=== PATIENT | female | born 1945 | race Caucasian/White ===

== ENCOUNTER 2022-06-28 16:16 | Observation (INO) | payer MEDICARE, OTHER ==
[2022-06-28 18:27] LABS: Basophils # (A) 0.1 k/uL (0-0.2); Basophils % (A) 1 %; Eosinophils # (A) 0.1 k/uL (0-0.7); Eosinophils % (A) 1 %; HCT 45.2 % (34.0-46.0); HGB 15.2 gm/dL (11.4-16.0); Lymphocytes # (A) 1.8 k/uL (1.0-4.8); Lymphocytes % (A) 24 %; MCH 28.7 pg (25.0-35.0); MCHC 33.6 g/dL (31.0-37.0); MCV 85.6 fL (80.0-100.0); Mean Platelet Volume 8.3; Monocytes # (A) 0.5 k/uL (0-1.0); Monocytes % (A) 6 %; Neutrophils # (A) 5.1 k/uL (1.3-7.7); Neutrophils % (A) 66 %; Platelet Count 168 k/uL (150-450); RBC 5.28 m/uL (3.80-5.40); WBC 7.8 k/uL (3.8-10.6)
[2022-06-28 18:36] LABS: Partial Thromboplastin Time 23.9 sec (22.0-30.0); Prothrombin Time 10.4 sec (9.0-12.0)
[2022-06-28 18:39] LABS: ALT 17 U/L (4-34); AST 19 U/L (14-36); African American GFR (CKD) >90 (>60 ml/min/1.73 sqM); Albumin 4.3 g/dL (3.5-5.0); Alkaline Phosphatase 125 U/L (38-126); Anion Gap 9 mmol/L; Blood Urea Nitrogen 20 mg/dL (7-17); Calcium 9.2 mg/dL (8.4-10.2); Carbon Dioxide 29 mmol/L (22-30); Chloride 102 mmol/L (98-107); Glucose 145 mg/dL (74-99); Non-African American GFR(CKD) >90 (>60 ml/min/1.73 sqM); Potassium 4.4 mmol/L (3.5-5.1); Sodium 140 mmol/L (137-145); Total Bilirubin 0.8 mg/dL (0.2-1.3); Total Protein 7.3 g/dL (6.3-8.2)
--- NOTE | 2022-06-28 22:00 | XR ---
EXAMINATION TYPE: XR chest 2V DATE OF EXAM: 06/28/2022 COMPARISON: NONE HISTORY: Shortness of breath TECHNIQUE: Frontal and lateral views of the chest are obtained. FINDINGS: Scattered senescent parenchymal changes noted. Hyperinflation compatible with COPD. No evidence for infiltrate. No evidence for atelectasis. Heart size is stable. Mediastinal structures are stable and grossly unremarkable. No evidence for hilar prominence. Degenerative changes dorsal spine. IMPRESSION: 1. No evidence for acute pulmonary disease.
[2022-06-28] MEDS ORDERED: NALOXONE 0.4 MG/ML 1 ML VIAL IV PRN (23:05)
--- NOTE | 2022-06-28 23:05 | ED ---
SOB HPI - General Chief Complaint: Shortness of Breath Stated Complaint: SOB Time Seen by Provider: 06/28/22 20:50 Source: patient Mode of arrival: ambulatory Limitations: no limitations - History of Present Illness Initial Comments: 77 year old female with past history of coronary artery disease status post cardiac catheterization and stent placement in December presents to the emergency department with chest pain and difficulty breathing. Patient was hospitalized at [facility] in December and had a cardiac catheterization performed. She was found to have a 90% LAD lesion and had a stent placed. Reports that she had a second lesion that was 50% occluded. States that she has been taking her Plavix as directed however continues to have exertional dyspnea. This morning the patient began having left-sided chest pain with some throbbing in her left bicep. States that the pain is gone at this time. She denies history of DVT or PE. No fevers, chills or cough. No other alleviating, precipitating modifying factors - Related Data Home Medications Medication Instructions Recorded Confirmed Aspirin 81 mg PO HS 06/28/22 06/28/22 Atorvastatin [Lipitor] 20 mg PO BID 06/28/22 06/28/22 Clopidogrel [Plavix] 75 mg PO HS 06/28/22 06/28/22 Ibuprofen [Motrin] 800 mg PO TID PRN 06/28/22 06/28/22 Metoprolol Tartrate [Lopressor] 12.5 mg PO BID 06/28/22 06/28/22 PARoxetine HCL [Paxil] 60 mg PO HS 06/28/22 06/28/22 diazePAM [Valium] 5 mg PO Q12H PRN 06/28/22 06/28/22 Allergies Allergy/AdvReac Type Severity Reaction Status Date / Time No Known Allergies Allergy Verified 06/28/22 21:43 Review of Systems ROS Statement: Those systems with pertinent positive or pertinent negative responses have been documented in the HPI. ROS Other: All systems not noted in ROS Statement are negative. Past Medical History Past Medical History: Coronary Artery Disease (CAD), Chest Pain / Angina History of Any Multi-Drug Resistant Organisms: None Reported Past Surgical History: Heart Catheterization With Stent Past Psychological History: Anxiety Smoking Status: Never smoker Past Alcohol Use History: None Reported Past Drug Use History: None Reported - Past Family History family Family Medical History: Coronary Artery Disease (CAD) General Exam Limitations: no limitations General appearance: alert, in no apparent distress Head exam: Present: atraumatic, normocephalic, normal inspection Eye exam: Present: normal appearance, PERRL, EOMI. Absent: scleral icterus, conjunctival injection, periorbital swelling ENT exam: Present: normal exam, mucous membranes moist Neck exam: Present: normal inspection. Absent: tenderness, meningismus, lymphadenopathy Respiratory exam: Present: normal lung sounds bilaterally. Absent: respiratory distress, wheezes, rales, rhonchi, stridor Cardiovascular Exam: Present: regular rate, normal rhythm, normal heart sounds. Absent: systolic murmur, diastolic murmur, rubs, gallop, clicks GI/Abdominal exam: Present: soft, normal bowel sounds. Absent: distended, tenderness, guarding, rebound, rigid Extremities exam: Present: normal inspection, full ROM, normal capillary refill. Absent: tenderness, pedal edema, joint swelling, calf tenderness Back exam: Present: normal inspection Neurological exam: Present: alert, oriented X3, CN II-XII intact Psychiatric exam: Present: normal affect, normal mood Skin exam: Present: warm, dry, intact, normal color. Absent: rash Course Vital Signs 06/28/22 06/28/22 17:01 22:00 Temperature 97.9 F Pulse Rate 78 72 Respiratory 20 18 Rate Blood Pressure 194/91 172/96 O2 Sat by Pulse 96 98 Oximetry Medical Decision Making - Medical Decision Making Upon arrival patient was placed into room 1. A thorough history and physical exam was performed. Patient placed on continuous pulse ox and cardiac monitoring. 12 EKG is obtained which demonstrates no acute ST segment elevations or depressions. IV access is established and laboratory studies are conducted. D-dimer is 0.75 which is age appropriate. Troponin negative. Spoke with the patient recommended admission for cardiology consultation for which the patient was agreeable to. Patient admitted to [facility] in stable condition - Lab Data Result diagrams: 06/29/22 04:35 06/29/22 04:35 Lab Results 06/28/22 06/28/22 06/28/22 Range/Units 17:55 17:55 17:55 WBC 7.8 (3.8-10.6) k/uL RBC 5.28 (3.80-5.40) m/uL Hgb 15.2 (11.4-16.0) gm/dL Hct 45.2 (34.0-46.0) % MCV 85.6 (80.0-100.0) fL MCH 28.7 (25.0-35.0) pg MCHC 33.6 (31.0-37.0) g/dL RDW 15.0 (11.5-15.5) % Plt Count 168 (150-450) k/uL MPV 8.3 Neutrophils % 66 % Lymphocytes % 24 % Monocytes % 6 % Eosinophils % 1 % Basophils % 1 % Neutrophils # 5.1 (1.3-7.7) k/uL Lymphocytes # 1.8 (1.0-4.8) k/uL Monocytes # 0.5 (0-1.0) k/uL Eosinophils # 0.1 (0-0.7) k/uL Basophils # 0.1 (0-0.2) k/uL PT 10.4 (9.0-12.0) sec INR 1.0 (<1.2) APTT 23.9 (22.0-30.0) sec D-Dimer (<0.60) mg/L FEU Sodium 140 (137-145) mmol/L Potassium 4.4 (3.5-5.1) mmol/L Chloride 102 (98-107) mmol/L Carbon Dioxide 29 (22-30) mmol/L Anion Gap 9 mmol/L BUN 20 H (7-17) mg/dL Creatinine 0.50 L (0.52-1.04) mg/dL Est GFR (CKD-EPI)AfAm >90 (>60 ml/min/1.73 sqM) Est GFR (CKD-EPI)NonAf >90 (>60 ml/min/1.73 sqM) Glucose 145 H (74-99) mg/dL Plasma Lactic Acid Fernando (0.7-2.0) mmol/L Calcium 9.2 (8.4-10.2) mg/dL Total Bilirubin 0.8 (0.2-1.3) mg/dL AST 19 (14-36) U/L ALT 17 (4-34) U/L Alkaline Phosphatase 125 (38-126) U/L Troponin I (0.000-0.034) ng/mL NT-Pro-B Natriuret Pep pg/mL Total Protein 7.3 (6.3-8.2) g/dL Albumin 4.3 (3.5-5.0) g/dL 06/28/22 06/28/22 06/28/22 Range/Units 17:55 18:00 18:00 WBC (3.8-10.6) k/uL RBC (3.80-5.40) m/uL Hgb (11.4-16.0) gm/dL Hct (34.0-46.0) % MCV (80.0-100.0) fL MCH (25.0-35.0) pg MCHC (31.0-37.0) g/dL RDW (11.5-15.5) % Plt Count (150-450) k/uL MPV Neutrophils % % Lymphocytes % % Monocytes % % Eosinophils % % Basophils % % Neutrophils # (1.3-7.7) k/uL Lymphocytes # (1.0-4.8) k/uL Monocytes # (0-1.0) k/uL Eosinophils # (0-0.7) k/uL Basophils # (0-0.2) k/uL PT (9.0-12.0) sec INR (<1.2) APTT (22.0-30.0) sec D-Dimer 0.75 H (<0.60) mg/L FEU Sodium (137-145) mmol/L Potassium (3.5-5.1) mmol/L Chloride (98-107) mmol/L Carbon Dioxide (22-30) mmol/L Anion Gap mmol/L BUN (7-17) mg/dL Creatinine (0.52-1.04) mg/dL Est GFR (CKD-EPI)AfAm (>60 ml/min/1.73 sqM) Est GFR (CKD-EPI)NonAf (>60 ml/min/1.73 sqM) Glucose (74-99) mg/dL Plasma Lactic Acid Fernando (0.7-2.0) mmol/L Calcium (8.4-10.2) mg/dL Total Bilirubin (0.2-1.3) mg/dL AST (14-36) U/L ALT (4-34) U/L Alkaline Phosphatase (38-126) U/L Troponin I <0.012 (0.000-0.034) ng/mL NT-Pro-B Natriuret Pep 397 pg/mL Total Protein (6.3-8.2) g/dL Albumin (3.5-5.0) g/dL 06/28/22 Range/Units 21:15 WBC (3.8-10.6) k/uL RBC (3.80-5.40) m/uL Hgb (11.4-16.0) gm/dL Hct (34.0-46.0) % MCV (80.0-100.0) fL MCH (25.0-35.0) pg MCHC (31.0-37.0) g/dL RDW (11.5-15.5) % Plt Count (150-450) k/uL MPV Neutrophils % % Lymphocytes % % Monocytes % % Eosinophils % % Basophils % % Neutrophils # (1.3-7.7) k/uL Lymphocytes # (1.0-4.8) k/uL Monocytes # (0-1.0) k/uL Eosinophils # (0-0.7) k/uL Basophils # (0-0.2) k/uL PT (9.0-12.0) sec INR (<1.2) APTT (22.0-30.0) sec D-Dimer (<0.60) mg/L FEU Sodium (137-145) mmol/L Potassium (3.5-5.1) mmol/L Chloride (98-107) mmol/L Carbon Dioxide (22-30) mmol/L Anion Gap mmol/L BUN (7-17) mg/dL Creatinine (0.52-1.04) mg/dL Est GFR (CKD-EPI)AfAm (>60 ml/min/1.73 sqM) Est GFR (CKD-EPI)NonAf (>60 ml/min/1.73 sqM) Glucose (74-99) mg/dL Plasma Lactic Acid Fernando 1.7 (0.7-2.0) mmol/L Calcium (8.4-10.2) mg/dL Total Bilirubin (0.2-1.3) mg/dL AST (14-36) U/L ALT (4-34) U/L Alkaline Phosphatase (38-126) U/L Troponin I (0.000-0.034) ng/mL NT-Pro-B Natriuret Pep pg/mL Total Protein (6.3-8.2) g/dL Albumin (3.5-5.0) g/dL - EKG Data EKG Comments: EKG was interpreted by myself. Demonstrates a sinus rhythm with a rate of 65. [place] interval 123. QRS 127. QTC 4:15. A bundle branch block. No acute ST segment elevations or depressions. Disposition Clinical Impression: Chest pain, Exertional dyspnea Disposition: ADMITTED IP TO THIS HOSP Condition: Stable Is patient prescribed a controlled substance at d/c from ED?: No Time of Disposition: 23:05 Decision to Admit Reason: Admit from EC Decision Date: 06/28/22 Decision Time: 23:05
[2022-06-29] MEDS ORDERED: ASPIRIN 81 MG PO STA (01:05)
[2022-06-29] MEDS ORDERED: IBUPROFEN 800 MG TAB PO PRN (01:05)
[2022-06-29] MEDS ORDERED: diazePAM 5 MG TAB PO PRN (01:05)
--- NOTE | 2022-06-29 03:30 | P.HPIM ---
History of Present Illness H&P Date: 06/29/22 Chief Complaint: chest pain 77 year old female with CAD s/p stent OCTOBER 2021 patient comes in after experiencing sudden episode of chest pain and shortness of breath while resting doing nothing, describes the pain as 5-6/10 central and across her chest , radiating to the left arm, associated with heavy breathing, palpitations and profuse sweating, denies any nausea or vomiting , she took aspirin and decided to come in for evaluation , she has concerns about her well being and overall cardiac health, as she has been experiencing exercise intolerance since her heart attack months ago, before that she used to walk 4 miles daily , but now she is unable to do that due to exertional dyspnea. denies any fever, chills, URI symptoms, abd pain , changes in bowel or urinary habits. blood work in the ED , unermarkable except for slightly elevated d dimer, EKG no acute ST changes Review of Systems Pertinent positives as noted in HPI. All other systems were reviewed and are negative Past Medical History Past Medical History: Coronary Artery Disease (CAD), Chest Pain / Angina History of Any Multi-Drug Resistant Organisms: None Reported Past Surgical History: Heart Catheterization With Stent Date of Last Stent Placement:: october 2021 Past Psychological History: Anxiety Smoking Status: Never smoker Past Alcohol Use History: None Reported Past Drug Use History: None Reported - Past Family History family Family Medical History: Coronary Artery Disease (CAD) Medications and Allergies Home Medications Medication Instructions Recorded Confirmed Type Aspirin 81 mg PO HS 06/28/22 06/28/22 History Atorvastatin [Lipitor] 20 mg PO BID 06/28/22 06/28/22 History Clopidogrel [Plavix] 75 mg PO HS 06/28/22 06/28/22 History Ibuprofen [Motrin] 800 mg PO TID PRN 06/28/22 06/28/22 History Metoprolol Tartrate [Lopressor] 12.5 mg PO BID 06/28/22 06/28/22 History PARoxetine HCL [Paxil] 60 mg PO HS 06/28/22 06/28/22 History diazePAM [Valium] 5 mg PO Q12H PRN 06/28/22 06/28/22 History Allergies Allergy/AdvReac Type Severity Reaction Status Date / Time No Known Allergies Allergy Verified 06/28/22 21:43 Physical Exam Vitals: Vital Signs Temp Pulse Pulse Resp BP BP Pulse Ox 06/29/22 00:52 152/72 06/29/22 00:21 16 06/29/22 00:00 98.2 F 70 16 196/43 97 06/28/22 22:00 72 18 172/96 98 06/28/22 17:01 97.9 F 78 20 194/91 96 Intake and Output 06/28/22 06/28/22 06/29/22 14:59 22:59 06:59 Other: Weight 99.79 kg 99.79 kg Constitutional: No acute distress, conversant, pleasant Eyes: Anicteric sclerae, moist conjunctiva, Pupils equal round reactive to light ENMT: NC/AT Oropharynx clear, no erythema, or exudates Neck: Supple, no masses, or JVD No carotid bruits No thyromegaly Lungs: Clear to auscultation Clear to percussion Normal respiratory effort, no accessory muscle use Cardiovascular: Heart regular in rate and rhythm, No murmurs, gallops, or rubs No peripheral edema Abdominal: Soft Nontender, no guarding, rebound or rigidity Abdomen moving with respiration Normoactive bowel sounds No hepatomegaly, No splenomegaly No palpable mass No abdominal wall hernia noted Skin: Normal temperature, tone, texture, turgor No induration No subcutaneous nodules No rash, lesions No ulcers Extremities: No digital cyanosis No clubbing Pedal pulses intact and symmetrical Radial pulses intact and symmetrical No calf tenderness Psychiatric: Alert and oriented to person, place and time Appropriate affect fair judgement Neuro Muscles Strength 5/5 in all 4 extremities Sensation to light touch grossly present throughout Cranial nerves II-XII grossly intact Lymphatics: no palpable cervical or supraclavicular , lymph nodes Results CBC & Chem 7: 06/28/22 17:55 06/28/22 17:55 Labs: Abnormal Lab Results - Last 24 Hours (Table) 06/28/22 06/28/22 Range/Units 17:55 18:00 D-Dimer 0.75 H (<0.60) mg/L FEU BUN 20 H (7-17) mg/dL Creatinine 0.50 L (0.52-1.04) mg/dL Glucose 145 H (74-99) mg/dL Thrombosis Risk Factor Assmnt - Choose All That Apply Any of the Below Risk Factors Present?: Yes Each Factor Represents 1 point: Obesity (BMI >25), Swollen legs (current) Other Risk Factors: Yes Each Risk Factor Represents 3 Points: Age 75 years or older Thrombosis Risk Factor Assessment Total Risk Factor Score: 5 Thrombosis Risk Factor Assessment Level: High Risk Assessment and Plan Assessment: atypical chest pain rule out ACS EKG no acute changes CXR no acute pathology trops negative X2 air sampling and monitoring monitor vital signs ASA, statin , plavix , lopressor cardiology consult A1c, lipid panel , TSH pain control h/o CAD s/p stent October 2021 full code DVT PPX heparin sc tid
[2022-06-29 04:52] LABS: Basophils % (A) 1 %; Eosinophils # (A) 0.1 k/uL (0-0.7); Eosinophils % (A) 2 %; HCT 40.9 % (34.0-46.0); HGB 13.6 gm/dL (11.4-16.0); Lymphocytes # (A) 2.4 k/uL (1.0-4.8); Lymphocytes % (A) 29 %; MCH 28.5 pg (25.0-35.0); MCHC 33.3 g/dL (31.0-37.0); MCV 85.7 fL (80.0-100.0); Monocytes # (A) 0.6 k/uL (0-1.0); Monocytes % (A) 7 %; Neutrophils # (A) 4.9 k/uL (1.3-7.7); Neutrophils % (A) 59 %; Platelet Count 180 k/uL (150-450); RBC 4.78 m/uL (3.80-5.40); WBC 8.3 k/uL (3.8-10.6)
[2022-06-29 05:16] LABS: African American GFR (CKD) >90 (>60 ml/min/1.73 sqM); Anion Gap 5 mmol/L; Blood Urea Nitrogen 22 mg/dL (7-17); Calcium 8.6 mg/dL (8.4-10.2); Carbon Dioxide 30 mmol/L (22-30); Chloride 105 mmol/L (98-107); Glucose 121 mg/dL (74-99); Non-African American GFR(CKD) >90 (>60 ml/min/1.73 sqM); Potassium 4.4 mmol/L (3.5-5.1); Sodium 140 mmol/L (137-145)
[2022-06-29] MEDS ORDERED: bisacodyL 10 MG SUPP RECTAL STA (08:06)
--- NOTE | 2022-06-29 08:45 | CT ---
EXAMINATION TYPE: CT angio chest DATE OF EXAM: 06/29/2022 COMPARISON: None HISTORY: Acute chest pain, elevated d dimer CT DLP: 603.2 mGycm CONTRAST: CT chest with contrast and 3D reconstruction with MIP imaging is performed with IV Contrast, patient injected with 100 mL of Isovue 370. Contrast-enhanced CT of the chest was performed through the course of the pulmonary arteries with maritza g and mediastinal window settings submitted. 3D reconstruction with MIP imaging was also performed. PULMONARY ARTERIES: The pulmonary arteries and their major tributaries are patent. I do not see mag dence for sizable filling defect to suggest pulmonary embolic process. LUNGS: The lungs are clear and free of infiltrate. No evidence for atelectasis. No pulmonary nodule or mass is detected. No pleural effusion. MEDIASTINUM: Thoracic aorta is of normal caliber,however, evaluation is limited given timing of the contrast bolus. If there is concern for thoracic aortic pathology consider MAXINE. Correlate clinicall y . The heart is not enlarged. No evidence for mediastinal mass. No mediastinal lymph nodes greater than 1cm. HILAR STRUCTURES: No evidence for mass. No hilar lymph nodes greater than 1 cm. UPPER ABDOMEN: No significant abnormality is seen. IMPRESSION: 1. No evidence for Pulmonary embolism at this time.
[2022-06-29 08:51] VITALS: TEMP 97.8
[2022-06-29] MEDS ORDERED: METOPROLOL TARTRATE 12.5 MG TAB PO SCH (09:00)
[2022-06-29] MEDS ORDERED: ATORVASTATIN 20 MG TAB PO SCH (09:00)
[2022-06-29] MEDS ORDERED: SENNOSIDES-DOCUSATE SODIUM 1 EACH TAB PO SCH (09:00)
--- NOTE | 2022-06-29 09:35 | P.CRDCN ---
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 Patient relates that she had a myocardial infarction 11/05/[address] at [facility] status post stent to the RCA. She states she also had a 50% blockage in a second vessel. Patient complains of chest pain went into her left arm as"little pains", palpitations, shortness of breath, nausea. Usually only lasts a few seconds. Patient states that she cannot exercise because of severe osteoarthritis of both knees. She does state with minimal activity she has shortness of breath. She has had follow-up with her special investigator due to chest pain and exertional dyspnea with plan for stress test which apparently was canceled patient does not know reason why. She has no t had a recent follow-up with her special investigator. At the time of this evaluation, patient states she has nausea only. She denies having chest pain and shortness of breath at rest. Social history: Patient was a smoker of one and half packs per day for 10 years ago with 30 years ago. She denies any alcohol use, marijuana use or street drug use. Family medical history: Mother at age 67 from heart failure. Father had an myocardial infarction in his 60s. Patient has 4 sisters with cardiac disease. She has 1 brother that has had a myocardial infarction and one son age 54 has had a cardiac stent. EKG sinus rhythm with right bundle branch block, monitor tech sinus rhythm.. Chest x-ray no acute disease. CTA of the chest negative for pulmonary embolism Troponin negative on 3 draws, pro-BMP 397, creatinine 0.5. Lipid panel is pending Echocardiogram ordered. Review Of Systems: At time of my evaluation Constitutional: No fever, no chills. No weakness, fatigue or lethargy. EENT: No headache. No dizziness. Lungs: No shortness of breath, cough, no sputum production. No wheezing. Cardiovascular: No chest pain, no lower extremity edema. No palpitations. No paroxysmal nocturnal dyspnea. No orthopnea. No lightheadedness or dizziness. No syncopal episodes. Abdominal: No abdominal pain. No nausea, vomiting. No diarrhea. No constipation. No bloody or tarry stools.. No loss of appetite. Genitourinary: No dysuria.. No urinary retention. Musculoskeletal: No myalgias. No muscle weakness, no gait dysfunction, no frequent falls. No back pain. No neck pain. Integumentary: No wounds, no lesions. No rash or pruritus. No unusual bruising. Neurologic: No aphasia. No facial droop. No change in mentation. No head injury. No headache. No paralysis. No paresthesia. Psychiatric: No depression. No anxiety. Endocrine: No abnormal blood sugars. Physical examination: Gen: This is a 77-year-old female. She is resting in bed appears to be comfortable at rest and in no acute distress. VS: Temperature 97.8, heart rate 76, blood pressure 153/72, pulse ox 94% on room air. HEENT: Head is atraumatic, normocephalic. Pupils equal, round. Sclerae is anicteric. NECK: Supple. No JVD. No lymphadenopathy. No thyromegaly. No carotid bruit. LUNGS: Clear to auscultation. No wheezes or rhonchi. No intercostal retractions. HEART: Regular rate and rhythm. No murmur. ABDOMEN: Soft. Bowel sounds are present. No masses. No tenderness. EXTREMITIES: No pedal edema. No calf tenderness. Dorsalis pedis +2 on the right, +1 on the left. NEUROLOGICAL: Patient is awake, alert and oriented x3. Cranial nerves 2 through 12 are grossly intact. Assessment: Atypical Chest pain, acute coronary syndrome ruled out Coronary artery disease status post stent of the RCA in October 2021 Dyspnea and fatigue with exertion since stenting in October 2021. Less likely side effect from statin however believes improved after decreasing. Plan: Patient to continue on home cardiac medications including Plavix, aspirin 81 mg daily, metoprolol Patient may stop atorvastatin to access if this is causing some of her symptoms Obtain 2-D echocardiogram and Doppler study to assess cardiac structure and function If echocardiogram is normal, patient may discharge to home Patient instructed to monitor BP at home Follow up with Dr. Plaza in one to two weeks Thank you kindly for this consultation. Nurse practitioner note has been reviewed, I agree with documented findings and plan of care. Patient was seen and examined. Past Medical History Past Medical History: Coronary Artery Disease (CAD), Chest Pain / Angina History of Any Multi-Drug Resistant Organisms: None Reported Past Surgical History: Heart Catheterization With Stent Date of Last Stent Placement:: october 2021 Past Psychological History: Anxiety Smoking Status: Never smoker Past Alcohol Use History: None Reported Past Drug Use History: None Reported - Past Family History family Family Medical History: Coronary Artery Disease (CAD) Medications and Allergies Home Medications Medication Instructions Recorded Confirmed Type Aspirin 81 mg PO HS 06/28/22 06/28/22 History Atorvastatin [Lipitor] 20 mg PO BID 06/28/22 06/28/22 History Clopidogrel [Plavix] 75 mg PO HS 06/28/22 06/28/22 History Ibuprofen [Motrin] 800 mg PO TID PRN 06/28/22 06/28/22 History Metoprolol Tartrate [Lopressor] 12.5 mg PO BID 06/28/22 06/28/22 History PARoxetine HCL [Paxil] 60 mg PO HS 06/28/22 06/28/22 History diazePAM [Valium] 5 mg PO Q12H PRN 06/28/22 06/28/22 History Allergies Allergy/AdvReac Type Severity Reaction Status Date / Time No Known Allergies Allergy Verified 06/28/22 21:43 Physical Exam Vitals: Vital Signs Temp Pulse Pulse Resp BP BP Pulse Ox 06/29/22 00:52 152/72 06/29/22 00:21 16 06/29/22 00:00 98.2 F 70 16 196/43 97 06/28/22 22:00 72 18 172/96 98 06/28/22 17:01 97.9 F 78 20 194/91 96 Intake and Output 06/28/22 06/29/22 06/29/22 22:59 06:59 14:59 Other: Voiding Method Toilet Diaper Weight 99.79 kg 99.79 kg Results 06/29/22 04:35 06/29/22 04:35 Cardiac Enzymes 06/28/22 06/28/22 06/28/22 Range/Units 17:55 17:55 23:15 AST 19 (14-36) U/L Troponin I <0.012 <0.012 (0.000-0.034) ng/mL 06/29/22 Range/Units 04:35 AST (14-36) U/L Troponin I <0.012 (0.000-0.034) ng/mL Coagulation 06/28/22 Range/Units 17:55 PT 10.4 (9.0-12.0) sec APTT 23.9 (22.0-30.0) sec CBC 06/28/22 06/29/22 Range/Units 17:55 04:35 WBC 7.8 8.3 (3.8-10.6) k/uL RBC 5.28 4.78 (3.80-5.40) m/uL Hgb 15.2 13.6 (11.4-16.0) gm/dL Hct 45.2 40.9 (34.0-46.0) % Plt Count 168 180 (150-450) k/uL Comprehensive Metabolic Panel 06/28/22 06/29/22 Range/Units 17:55 04:35 Sodium 140 140 (137-145) mmol/L Potassium 4.4 4.4 (3.5-5.1) mmol/L Chloride 102 105 (98-107) mmol/L Carbon Dioxide 29 30 (22-30) mmol/L BUN 20 H 22 H (7-17) mg/dL Creatinine 0.50 L 0.58 (0.52-1.04) mg/dL Glucose 145 H 121 H (74-99) mg/dL Calcium 9.2 8.6 (8.4-10.2) mg/dL AST 19 (14-36) U/L ALT 17 (4-34) U/L Alkaline Phosphatase 125 (38-126) U/L Total Protein 7.3 (6.3-8.2) g/dL Albumin 4.3 (3.5-5.0) g/dL Current Medications Generic Name Dose Route Start Last Admin Trade Name Freq PRN Reason Stop Dose Admin Aspirin 81 mg 06/29/22 21:00 Aspirin 81 Mg PO HS [facility] Atorvastatin Calcium 20 mg 06/29/22 09:00 Atorvastatin 20 Mg Tab PO BID [facility] Clopidogrel Bisulfate 75 mg 06/29/22 21:00 Clopidogrel 75 Mg Tab PO HS [facility] Diazepam 5 mg 06/29/22 01:05 Diazepam 5 Mg Tab PO Q12H PRN Anxiety Ibuprofen 800 mg 06/29/22 01:05 Ibuprofen 800 Mg Tab PO TID PRN Pain Metoprolol Tartrate 12.5 mg 06/29/22 09:00 Metoprolol Tartrate 12.5 Mg Tab PO BID KATELYN Naloxone HCl 0.2 mg 06/28/22 23:05 Naloxone 0.4 Mg/Ml 1 Ml Vial IV Q2M PRN Opioid Reversal Paroxetine HCl 60 mg 06/29/22 21:00 Paroxetine 20 Mg Tab PO HS KATELYN Intake and Output 06/28/22 06/29/22 06/29/22 22:59 06:59 14:59 Other: Voiding Method Toilet Diaper Weight 99.79 kg 99.79 kg 06/29/22 04:35 06/29/22 04:35
[2022-06-29 11:47] LABS: Chol/HDL Ratio 3.08 Ratio; LDL Cholesterol,Calculated 55.8 mg/dL (0.0-131.0)
--- NOTE | 2022-06-29 14:30 | CA ---
Transthoracic Echo Report Name: Chris Mejia Age: 77 Gender: F : 1945 Exam Date: 06/29/2022 08:54 Exam Location: [place] [facility] Ht (in): 65 Wt (lb): 220 Ordering Physician: Christine Piper Attending/Referring Phys: [id number], [employer] Chair Annabel Valdes RDCS Procedure CPT: Indications: LVF Cardiac Hx: Technical Quality: Fair Contrast 1: N/A Total Dose (mL): Contrast 2: Total Dose (mL): MEASUREMENTS (Male / Female) Normal Values 2D ECHO LV Diastolic Diameter PLAX 4.3 cm 4.2 - 5.9 / 3.9 - 5.3 cm LV Systolic Diameter PLAX 3.3 cm IVS Diastolic Thickness 1.3 cm 0.6 - 1.0 / 0.6 - 0.9 cm LVPW Diastolic Thickness 1.5 cm 0.6 - 1.0 / 0.6 - 0.9 cm LV Relative Wall Thickness 0.7 RV Internal Dim ED PLAX 3.0 cm LA Systolic Diameter LX 4.0 cm 3.0 - 4.0 / 2.7 - 3.8 cm LA Volume 78.9 cm??? 18 - 58 / 22 - 52 cm??? M-MODE Aortic Root Diameter MM 2.6 cm LA Systolic Diameter MM 4.8 cm LA Ao Ratio MM 1.8 MV E Point Septal Separation 0.4 cm AV Cusp Separation MM 1.7 cm DOPPLER MV Area PHT 3.1 cm??? Mitral E Point Velocity 96.8 cm/s Mitral A Point Velocity 85.7 cm/s Mitral E to A Ratio 1.1 MV Deceleration Time 188.7 ms MV E' Velocity 3.8 cm/s Mitral E to MV E' Ratio 25.2 TR Peak Velocity 271.7 cm/s TR Peak Gradient 29.5 mmHg Right Ventricular Systolic Press 32.6 mmHg FINDINGS Left Ventricle Mildly increased septal wall thickness. Left ventricular ejection fraction is estimated at 50-55%. Right Ventricle Normal right ventricular size and function. Right ventricular systolic pressure within normal limits. Right Atrium Mild right atrial dilatation. Left Atrium Mildly increased left atrial diameter. Severely increased left atrial volume. Mildly increased left atrial area. Mitral Valve Structurally normal mitral valve. Mild mitral regurgitation. Aortic Valve Trileaflet aortic valve. Tricuspid Valve Structurally normal tricuspid valve. Mild tricuspid regurgitation. Pulmonic Valve Structurally normal pulmonic valve. Pericardium Normal pericardium. Aorta Normal size aortic root and proximal ascending aorta. CONCLUSIONS Mild increased left ventricular wall thickness Left ventricular ejection fraction 50-55% Mild to moderately dilated left atrium Mild mitral regurgitation Mild tricuspid regurgitation RVSP 32 Previewed by: Dr. Neo Plaza DO (Electronically Signed) Final Date: 29 June 2022 14:29
[2022-06-29 14:35] VITALS: BP 171/51; PULSE 75; RESP 16
--- NOTE | 2022-06-29 15:08 | P.DS ---
Providers Date of admission: 06/28/22 23:05 Expected date of discharge: 06/29/22 Attending physician: Ramses Ray MD Consults: 06/28/22 23:05 Consult Physician Urgent Consulting Provider: [facility] Consult Reason/Comments: acute chest pain, hx ascad Do you want consulting provider notified?: Yes Primary care physician: SOCRATES Hernandez Hospital Course: Discharge Diagnosis: Chest pain, acute coronary syndrome ruled out Coronary artery disease Borderline diabetes Obesity with BMI 36.6 Hospital Course: As a 77 showed female with a history of borderline diabetes, coronary artery disease with prior stenting and myocardial infarction, and obesity who presented to the hospital with complaints of chest pain. In the ER she underwent an extensive evaluation. On arrival she was hypertensive with a blood pressure of 194/91. Initial EKG was nonischemic. Initial blood work was unremarkable. Troponin was negative. BNP was 397. She did have mildly elevated d-dimer at 0.75 which should be normal for age adjustment. She did undergo a CT of the chest which ruled out any pulmonary embolism or intrathoracic process. Her troponins were cycled and remained negative. She was seen by cardiology. They recommended continuing her aspirin and Plavix and metoprolol. She had an echo which showed: Left ventricular ejection fraction 50-55%, mild to moderately dilated left atrium, RVSP 32, mildly increased left ventricular wall thickness Of note she does complain of abnormal bowel movements since October and some intermittent tremors. I've asked her to follow-up with her primary care physician for further evaluation. Follow-up: Dr. Plaza in 1-[address] Nunez in 1-2 weeks, no medication changes at this time. Patient seen and examined at bedside. No chest pain durrent, no shortness of breath, some nausea, c/o abdnormal bowel since nd intermittent tremors Vital signs reviewed and stable. General: nontoxic, no distress, appears at stated age Derm: warm, dry Head: atraumatic, normocephalic, symmetric Eyes: EOMI, no lid lag, anicteric sclera Mouth: no lip lesion, mucus membranes moist Cardiovascular: S1S2 reg, no murmur, positive posterior tibial pulse bilateral, Lungs: CTA bilateral, no rhonchi, no rales , no accessory muscle use Abdominal: soft, nontender to palpation, no guarding, no appreciable organomegaly Ext: no gross muscle atrophy, no edema, no contractures Neuro: CN II-XI grossly intact, no focal neuro deficits Psych: Alert, oriented, appropriate affect A total of 25 minutes of time were spent preparing this complex discharge summary. Patient was discharged on 06/29/22. Patient Condition at Discharge: Stable Plan - Discharge Summary New Discharge Prescriptions: Continue Aspirin 81 mg PO HS PARoxetine HCL [Paxil] 60 mg PO HS Clopidogrel [Plavix] 75 mg PO HS diazePAM [Valium] 5 mg PO Q12H PRN PRN Reason: Anxiety Metoprolol Tartrate [Lopressor] 12.5 mg PO BID Ibuprofen [Motrin] 800 mg PO TID PRN PRN Reason: Pain Atorvastatin [Lipitor] 20 mg PO BID Discharge Medication List Aspirin 81 mg PO HS 06/28/22 [History] Atorvastatin [Lipitor] 20 mg PO BID 06/28/22 [History] Clopidogrel [Plavix] 75 mg PO HS 06/28/22 [History] Ibuprofen [Motrin] 800 mg PO TID PRN 06/28/22 [History] Metoprolol Tartrate [Lopressor] 12.5 mg PO BID 06/28/22 [History] PARoxetine HCL [Paxil] 60 mg PO HS 06/28/22 [History] diazePAM [Valium] 5 mg PO Q12H PRN 06/28/22 [History] Follow up Appointment(s)/Referral(s): Neo Plaza DO [STAFF PHYSICIAN] - 1 Week Thais Nunez NPC [Primary Care Provider] - 1-2 days Activity/Diet/Wound Care/Special Instructions: Activity: as tolerated Diet: heart health Special Instructions: Monitor BP at home and record Bring list to Dr. Plaza's appointment. Discharge Disposition: HOME SELF-CARE
[2022-06-29] MEDS ORDERED: CLOPIDOGREL 75 MG TAB PO SCH (21:00)
[2022-06-29] MEDS ORDERED: PARoxetine 20 MG TAB PO SCH (21:00)
[2022-06-29] MEDS ORDERED: ASPIRIN 81 MG PO SCH (21:00)
== END 2022-06-29 15:27 | disposition home or self-care (01) ==
LOC: EC 16:16 → 6NMEDSUR 23:05
PROVIDERS: ADMIT Internal Medicine; ATTEND Internal Medicine
DX: R07.89 Other chest pain (principal); R06.09 Other forms of dyspnea; R53.83 Other fatigue; R79.89 Other specified abnormal findings of blood chemistry; R11.0 Nausea; R19.4 Change in bowel habit; R25.1 Tremor, unspecified; I25.10 Atherosclerotic heart disease of native coronary artery without angina pectoris; F41.9 Anxiety disorder, unspecified; R73.03 Prediabetes; M17.0 Bilateral primary osteoarthritis of knee; I10 Essential (primary) hypertension; I25.2 Old myocardial infarction; E66.9 Obesity, unspecified; Z68.36 Body mass index [BMI] 36.0-36.9, adult; Z87.891 Personal history of nicotine dependence; Z95.5 Presence of coronary angioplasty implant and graft; Z79.02 Long term (current) use of antithrombotics/antiplatelets; Z79.82 Long term (current) use of aspirin; Z79.899 Other long term (current) drug therapy; Z82.49 Family history of ischemic heart disease and other diseases of the circulatory system
CPT/HCPCS: 99285; 36415; 93005; 93306; 85379; 83880; 80061; 80053; 80048; 84443; 83605; 84484 ×2; 85025 ×2; 85610; 85730; 83036; 71046; 71275; G0378 ×2; Q9967

== ENCOUNTER → 2023-02-24 | Outpatient (CLI) | payer MEDICARE ==
--- NOTE | 2023-02-25 07:52 | US ---
EXAMINATION TYPE: US venous doppler duplex LE DATE OF EXAM: 02/24/2023 4:27 PM COMPARISON: NONE CLINICAL INDICATION: Female, 78 years old with history of M79.604 M79.605; right laughlin pain from fall 1 year go SIDE PERFORMED: Bilateral TECHNIQUE: The lower extremity deep venous system is examined utilizing real time linear array sonog keisha with graded compression, doppler sonography and color-flow sonography. VESSELS IMAGED: Common Femoral Vein Deep Femoral Vein Greater Saphenous Vein * Femoral Vein Popliteal Vein Small Saphenous Vein * Proximal Calf Veins (* superficial vessels) Right Leg: Negative for DVT Left Leg: Negative for DVT IMPRESSION: Grayscale, color doppler, spectral doppler imaging performed of the deep veins of the lo wer extremities. There is normal flow, compressibility, vascular waveforms.
--- NOTE | 2023-02-25 08:26 | US ---
EXAMINATION TYPE: US arterial LE single level DATE OF EXAM: 02/24/2023 4:44 PM CLINICAL INDICATION: Female, 78 years old with history of Z12.13; right leg pain from fall 1 year ago History of: Smoker: previous Hypertension: y Diabetic: borderline Hyperlipidemia: n TIA/CVA: n Previous Vascular Surgery: n CAD: n MT: n Vascular Ulcers: n Claudication: n Gangrene: n Doppler Waveforms: Right: Multiphasic Left: Multiphasic Right Brachial Pressure: 189 Left Brachial Pressure: 174 Ankle-Brachial Indices: Right: 0.9 Left: 1.0 Toe Brachial Indices: Right: could not obtain due to large misshapened toe Left: 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 Normal bilateral RYANN indices.
== END | disposition home or self-care (01) ==
LOC: RADUSWWP 15:54
PROVIDERS: ATTEND Family Medicine
DX: M79.604 Pain in right leg (principal); M79.605 Pain in left leg
CPT/HCPCS: 93922; 93970

== ENCOUNTER → 2023-07-29 | Outpatient (CLI) | payer MEDICARE ==
--- NOTE | 2023-07-29 15:32 | XR ---
EXAMINATION TYPE: XR Hip Complete RT DATE OF EXAM: 07/29/2023 COMPARISON: NONE HISTORY: Pain TECHNIQUE: 2 views submitted FINDINGS: There is no evidence of erosive change or acute fracture. There is right SI joint arthropathy. There is mild concentric narrowing the hip joint with diffuse osteopenia. Subtle deformity involving the upper margin of the right femur. Report called to referring clinician 3:30 PM 07/29/2023. IMPRESSION: 1. There is arthropathy with no definite acute fracture. There is a subtle lucency along the subcapit al region of the right femoral head. CT scan recommended..
== END | disposition home or self-care (01) ==
LOC: RADXRMAIN 14:13
PROVIDERS: ATTEND Family Medicine
DX: M12.851 Other specific arthropathies, not elsewhere classified, right hip (principal); Z91.81 History of falling
CPT/HCPCS: 73502

== ENCOUNTER → 2023-07-31 | Outpatient (CLI) | payer MEDICARE ==
--- NOTE | 2023-07-31 22:12 | XR ---
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 TECHNIQUE: 4 views of the skull. FINDINGS: Osseous mineralization appears appropriate. No definite fracture is seen. The visualized paranasal si nuses appear normally aerated. No evidence of acute displaced nasal bone fracture. There may possibly be a right zygomatic arch fracture. Visualized mandible and maxilla appear grossly intact. No radiop aque foreign body is seen. Visualized cervical spine shows moderate degenerative changes. IMPRESSION: Skull appears intact. 1. Right zygomatic arch fracture cannot be excluded. 2. No paranasal sinus air-fluid levels seen. 3. If clinically warranted, facial bone CT can be obtained for further evaluation.
--- NOTE | 2023-08-01 00:15 | CT ---
EXAMINATION TYPE: CT pelvis wo con CT DLP: 834.2 mGycm, Automated exposure control for dose reduction was used. DATE OF EXAM: 07/31/2023 6:05 PM COMPARISON: Right hip x-rays of 07/29/2023 CLINICAL INDICATION:Female, 78 years old with history of R93.89 ABNORMAL FINDINGS ON DX IMAGING OF O Z91.81; Fall, hip pain. AMS TECHNIQUE: Axial CT of the pelvis without contrast. Sagittal and coronal reformats were created on a separate workstation. Contrast used: mL of , (none if empty) Oral contrast used: without Oral Contrast (none if empty) FINDINGS: Bones: Mineralization appears appropriate. Mild/moderate degenerative changes of the included lower l umbar spine. Mild/moderate degenerative change of the SI joints with partial vacuum phenomenon. There is mild/moderate bilateral hip osteoarthropathy, right slightly greater than left with small osteoph ytes along the femoral head margin. No hip dislocation. Pelvis appears normal and symmetric. Soft tissues: Unremarkable bladder. Post hysterectomy. Numerous colonic diverticula, greatest in the sigmoid, without clear evidence of acute diverticulitis. Appendix is seen in the right lower quadrant and appears within normal limits. No free fluid or free air is seen in the pelvis. Moderate calcific ation of the visualized distal abdominal aorta and shows no evidence of AAA. Included kidneys demonstrate no calculus or hydronephrosis. There is a small fat-containing umbilical hernia. IMPRESSION: No acute osseous abnormality of the pelvis/hips. Degenerative changes as above.
== END | disposition home or self-care (01) ==
LOC: RADCTMAIN 13:58
PROVIDERS: ATTEND Family Medicine
DX: R93.89 Abnormal findings on diagnostic imaging of other specified body structures (principal); G89.11 Acute pain due to trauma; M25.551 Pain in right hip; Z91.81 History of falling; W19.XXXD Unspecified fall, subsequent encounter
CPT/HCPCS: 70260; 72192

== ENCOUNTER → 2023-11-18 | Outpatient (CLI) | payer MEDICARE ==
--- NOTE | 2023-11-18 14:55 | US ---
EXAMINATION TYPE: US abdomen limited DATE OF EXAM: 11/18/2023 COMPARISON: NONE CLINICAL INDICATION: Female, 78 years old with history of R53.82 CHR FATIGUE,R17 BILIRUBIN; Abnormal labs TECHNIQUE: Multiple sonographic images of the right upper quadrant are obtained. FINDINGS: EXAM MEASUREMENTS: Liver Length: 16.4 cm Gallbladder Wall: 0.1 cm CBD: 0.4 cm Right Kidney: 10.0 x 4.9 x 4.0 cm Pancreas: Echogenic in appearance. Limited visualization of tail. Liver: Heterogenous in appearance, echogenic Gallbladder: wnl Evidence for sonographic Arriola's sign: neg CBD: wnl Right Kidney: No hydronephrosis or masses seen, limited lower pole due to bowel gas IMPRESSION: Hepatic steatosis.
== END | disposition home or self-care (01) ==
LOC: RADUSWWP 13:07
PROVIDERS: ATTEND Student in an Organized Health Care Education/Training Program
DX: K76.0 Fatty (change of) liver, not elsewhere classified (principal); R53.82 Chronic fatigue, unspecified
CPT/HCPCS: 76705

== ENCOUNTER → 2024-04-23 | Outpatient (CLI) | payer MEDICARE ==
--- NOTE | 2024-04-23 09:31 | US ---
EXAMINATION TYPE: US venous doppler duplex LE RT DATE OF EXAM: 04/23/2024 8:44 AM COMPARISON: NONE CLINICAL INDICATION: Female, 79 years old with history of M79.604 R LEG PAIN M79.89 R LEG SWELLING; r ight leg edema and pain SIDE PERFORMED: right TECHNIQUE: The lower extremity deep venous system is examined utilizing real time linear array sonog keisha with graded compression, doppler sonography and color-flow sonography. VESSELS IMAGED: Common Femoral Vein Deep Femoral Vein Greater Saphenous Vein * Femoral Vein Popliteal Vein Small Saphenous Vein * Proximal Calf Veins (* superficial vessels) Right Leg: no evidence of DVT. complex anechoic area popliteal fossa = 2.0 x 1.1 x 1.5cm, Marsh's cy st IMPRESSION: 1. No diagnostic evidence of DVT. 2. Complicated popliteal fossa cyst measuring 2 cm consider short-term follow-up MRI.
--- NOTE | 2024-04-23 09:32 | US ---
EXAMINATION TYPE: US arterial LE single level DATE OF EXAM: 04/23/2024 9:02 AM CLINICAL INDICATION: Female, 79 years old with history of M79.604 R LEG PAIN M79.89 R LEG SWELLING; R ight leg pain and edema. partial toe amputation left great and 2nd toe years ago History of: Smoker: previous Hypertension: no Diabetic: yes Hyperlipidemia: no TIA/CVA: no Previous Vascular Surgery: cardiac stent 2019 [place]: yes Vascular Ulcers: no Claudication: no Gangrene: no Doppler Waveforms: Right: Multiphasic Left: Multiphasic Right Brachial Pressure: 167 Left Brachial Pressure: 159 Ankle-Brachial Indices: Right: 1.10 Left: 1.11 (Vessel hardening > 1.4; Normal 0.9 - 1.4, Moderate 0.7 - 0.9, Severe 0.5-0.7) Toe Brachial Indices: Right: 0.66 Left: n/a IMPRESSION: Normal bilateral RYANN.
== END | disposition home or self-care (01) ==
LOC: RADUSWWP 08:10
PROVIDERS: ATTEND Family Medicine
DX: M79.604 Pain in right leg
CPT/HCPCS: 93922